=== PATIENT | male | born 1930 | race Caucasian/White ===

== ENCOUNTER 2018-12-24 12:47 | Outpatient (CLI) | payer MEDICARE, BC ==
--- NOTE | 2018-12-24 15:55 | CT ---
CTA CHEST WITH CONTRAST: INDICATIONS: Atrial fibrillation. Exam was performed to evaluate prior to left atrial appendage ligation procedur e. COMPARISON: CT chest from 04/25/2017. TECHNIQUE: Multiple axial tomograms obtained through the chest with IV enhancement. Angio protocol was followed with multiplanar reconstruction and 3D post processing. FINDINGS: The pulmonary arteries are well opacified. There is no evidence of pulmonary embolus. The pulmonary veins are well opacified and appear unremarkable. The left atrium is unremarkable. The abdominal aorta shows mild atherosclerotic change. Mild aneurysmal dilatation of the ascending a megan is noted with diameter measured at up to 5 cm. Atherosclerotic changes in the aortic arch. The descending thoracic aorta is mildly ectatic with peripheral calcification. Diameter is measured at 3 .5 cm. The lungs show mild peripheral interstitial thickening. No infiltrate or effusion. Mild stranding i n the lung bases appears chronic. No evidence of pulmonary mass or nodule. No evidence of mediastin al adenopathy. Images through the upper abdomen are unremarkable. IMPRESSION: 1. 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 2. 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 3. Left atrium and pulmonary veins appear unremarkable. POS: [facility]
[2018-12-24] MEDS ORDERED: ISOVUE-370 76%-LOCM 1 ML ONE (16:30)
== END 2018-12-24 12:48 | disposition home or self-care (01) ==
LOC: BICCT 12:47
PROVIDERS: ATTEND Internal Medicine Cardiovascular Disease
DX: I48.91 Unspecified atrial fibrillation (principal); I71.2 Thoracic aortic aneurysm, without rupture; I70.0 Atherosclerosis of aorta
CPT/HCPCS: 71275; Q9966

== ENCOUNTER 2019-03-06 05:57 | Observation (INO) | payer MEDICARE, BC ==
[2019-03-06] MEDS ORDERED: Fentanyl 100 MCG/2 ML VIAL ONE ×2 (07:09→11:26)
[2019-03-06] MEDS ORDERED: Propofol 500 MG/50 ML VIAL ONE (07:09)
[2019-03-06] MEDS ORDERED: Ketamine 50 MG/ML (10ML VIAL) ONE (07:09)
[2019-03-06] MEDS ORDERED: Midazolam HCl 2 mg/2 ml Vial ONE (07:09)
[2019-03-06] MEDS ORDERED: Phenylephrine HCL 10 MG/ML VIAL ONE (09:34)
[2019-03-06] MEDS ORDERED: Promethazine HCl 25 MG/ML VIAL SLOW IVP PRN (10:39)
[2019-03-06] MEDS ORDERED: Promethazine HCl 25 MG/ML VIAL IM PRN (10:39)
[2019-03-06] MEDS ORDERED: Ondansetron HCl/PF 4 MG/2 ML Vial IVP PRN (10:39)
[2019-03-06] MEDS ORDERED: Iopamidol 370 76% 50 ML VIAL FS ONE (11:42)
[2019-03-06] MEDS ORDERED: diphenhydrAMINE 25 MG CAP PO PRN (14:05)
[2019-03-06 14:16] VITALS: BMI 31.8
[2019-03-06] MEDS ORDERED: PROPOFOL 200 MG/20 ML VIAL ONE (15:14)
[2019-03-06] MEDS ORDERED: PHENYLEPHRINE-NS 100 MCG/ML 10 ML SYRINGE ONE (15:14)
[2019-03-06] MEDS: Torsemide 20 MG TAB PO SCH (15:19)
[2019-03-06] MEDS: ceFAZolin 1 GM/D5W 1 GM in Premix Bag 1 BAG IVPB SCH (16:32)
--- NOTE | 2019-03-06 17:51 | EKG ---
Test Reason : POST LEAD REVISION Blood Pressure : / mmHG Vent. Rate : 083 BPM Atrial Rate : 052 BPM P-R Int : 000 ms QRS Dur : 138 ms QT Int : 456 ms P-R-T Axes : 000 070 244 degrees QTc Int : 535 ms Demand pacemaker; interpretation is based on intrinsic rhythm Wide QRS rhythm with Premature ventricular complexes or Fusion complexes Left bundle branch block Abnormal ECG When compared with ECG of 25-APR-2017 21:26, Wide QRS rhythm has replaced Electronic ventricular pacemaker Confirmed by DR. Antonio ARGUELLO ([id number]) on 03/06/2019 5:51:10 PM Referred By: [facility] Confirmed By:DR. Antonio ARGUELLO
[2019-03-07] MEDS: ceFAZolin 1 GM/D5W 1 GM in Premix Bag 1 BAG IVPB SCH (01:25)
[2019-03-07] MEDS: Cephalexin 250 MG CAP PO SCH ×3 (06:23→21:36)
--- NOTE | 2019-03-07 08:01 | RAD ---
EXAM: Chest PA and lateral: HISTORY: Post cardiac device placement COMPARISON: 01/29/2018 FINDINGS: Mediastinal postop changes. No pneumothorax. Heart size:Within normal limits. Lungs:Clear of acute process. No confluent pneumonia, overt edema, pleural effusion, or other acute process. IMPRESSION: No significant acute intrathoracic disease.
[2019-03-07] MEDS: Losartan 25 MG TAB PO SCH (09:43)
[2019-03-07] MEDS: Aspirin 81 mg Enteric Coated Tablet PO SCH (09:43)
[2019-03-07] MEDS: Allopurinol 300 MG TAB PO SCH (09:43)
[2019-03-07] MEDS: Torsemide 20 MG TAB PO SCH ×2 (09:44→14:36)
[2019-03-07] MEDS: Finasteride 5 MG TAB PO SCH (09:44)
[2019-03-07] MEDS: Senokot 8.6 MG TAB PO SCH (09:44)
[2019-03-07] MEDS: Spironolactone 25 MG TAB PO SCH (09:44)
[2019-03-07 13:21] LABS: Platelet Count 155 thou/uL (130-400)
--- NOTE | 2019-03-07 16:08 | PDOC.CTH ---
Cardiology Progress Note - Subjective EP PROGRESS NOTE: 03/07/19 Patient seen and evaluated. No new cardiac concerns or complaints today. Minimal tenderness at ICD implant/lead revision site. Denies heart racing, palpitations, chest pain/pressure, dizziness, or passing out. No stroke like symptoms. No fevers, chills, malaise. - Objective Vital Signs Temp Pulse Resp BP Pulse Ox 03/07/19 15:35 97.7 F 83 16 110/59 L 98 03/07/19 11:34 97.6 F 89 16 109/54 L 93 L 03/07/19 07:25 97.9 F 85 20 108/66 95 Weight 197 lb 11.2 oz 03/06/19 03/07/19 03/08/19 06:59 06:59 06:59 Intake Total 1010 Output Total 1375 Balance -365 - Physical Examination General/Neuro: alert & oriented x3, NAD Neck: carotid US brisk, no JVD present Lungs: CTA, unlabored respirations Heart: PMI normal Abdomen: NT/ND, soft Other PE findings: PPM site stable - Telemetry Telemetry Rhythm: AF, PATIENT LIAISON - Labs Result Diagrams: 03/07/19 13:10 03/07/19 13:10 - Assessment/Plan 1. Atrial fibrillation, paroxysmal - now in SR 2. Biventricular pacemaker -s/p LV lead revision on 03/06 - LV vector adjusted today which helped quiet PVC burden. -CXR stable this AM, no pneumothorax -Device function stable this AM - Cephalexin post implant x 7days. 3. CHB 4. NSVT 5. PVC -high burden. Bigeminy overnight. Has quieted some with lead adjustment this AM but will start amidoarone for suppression. Continue to monitor overnight. Will re-evaluated, check EKG in AM.
[2019-03-07] MEDS ORDERED: Amiodarone 200 MG TAB PO SCH (18:00)
[2019-03-07] MEDS: Amiodarone 200 MG TAB PO SCH (21:36)
[2019-03-07] MEDS: Apixaban 5 MG TAB PO SCH (21:36)
[2019-03-08] MEDS: Cephalexin 250 MG CAP PO SCH ×2 (05:46→13:33)
[2019-03-08] MEDS: Losartan 25 MG TAB PO SCH (08:11)
[2019-03-08] MEDS: Apixaban 5 MG TAB PO SCH (08:12)
[2019-03-08] MEDS: Senokot 8.6 MG TAB PO SCH (08:12)
[2019-03-08] MEDS: Spironolactone 25 MG TAB PO SCH (08:12)
[2019-03-08] MEDS: Torsemide 20 MG TAB PO SCH ×2 (08:12→13:35)
[2019-03-08] MEDS: Amiodarone 200 MG TAB PO SCH ×2 (08:13→15:25)
[2019-03-08] MEDS: Allopurinol 300 MG TAB PO SCH (08:13)
[2019-03-08] MEDS: Aspirin 81 mg Enteric Coated Tablet PO SCH (08:13)
[2019-03-08] MEDS: Finasteride 5 MG TAB PO SCH (08:13)
[2019-03-08 11:44] VITALS: TEMP 97.5
--- NOTE | 2019-03-08 12:41 | PDOC.CTH ---
Cardiology Progress Note - Subjective EP PROGRESS NOTE: 03/08/19 Patient seen and evaluated. No new cardiac concerns or complaints today. Minimal tenderness at ICD implant/lead revision site. Denies heart racing, palpitations, chest pain/pressure, dizziness, or passing out. No stroke like symptoms. No fevers, chills, malaise. - Objective Vital Signs Temp Pulse Resp BP Pulse Ox 03/08/19 11:43 97.5 F L 81 17 92/58 L 98 03/08/19 07:51 97.7 F 87 17 108/65 96 03/08/19 03:03 97.7 F 77 12 126/68 97 Weight 199 lb 4.8 oz 03/07/19 03/08/19 03/09/19 06:59 06:59 06:59 Intake Total 1010 1200 Output Total 1375 200 Balance -365 1000 - Physical Examination General/Neuro: alert & oriented x3, NAD Neck: carotid US brisk, no JVD present Lungs: CTA, unlabored respirations Heart: PMI normal Abdomen: NT/ND, soft - Telemetry Telemetry Rhythm: AF, CHIEF OF SERVICE pacing - Labs Result Diagrams: 03/07/19 13:10 03/07/19 13:10 - Assessment/Plan 1. Atrial fibrillation, paroxysmal vs persistent -Eliquis for OAC resumed. 2. Biventricular pacemaker - s/p lead revision on 03/06 - LV vector adjusted today which helped quiet PVC burden. - CXR stable 03/07, no pneumothorax - Device function stable 03/07 - Cephalexin post implant x 7days. 3. CHB 4. NSVT 5. PVC -high burden. Bi/Trigeminy overnight that essentially stopped this AM after starting Amiodarone 03/07 PM rhythm stabilized. Remains in AFib which may need CV as OP at a later date. OAC resumed last night with no signs of bleeding. Mild hypotension, possibly related to improved cardiac function s/p lead revision. Will reduce diuretics. Device and wound check in 2 weeks.
[2019-03-08 13:36] VITALS: BP 94/60
--- NOTE | 2019-03-09 05:41 | DIS ---
DATE OF ADMISSION: 03/06/2019 DATE OF DISCHARGE: 03/08/2019 REASON FOR ADMISSION: LV lead revision. HISTORY OF PRESENT ILLNESS: Mr. Min is a pleasant elderly gentleman, known to our practice for history of atrial arrhythmias as well as inclusion of a biventricular [employer] device. His LV lead had unfortunately dislodged and required lead revision. He was admitted to [facility] on 03/06/2019, for an elective outpatient lead revision. Following successfully revised LV lead, he was kept overnight for observation. During this time, he was also found to have very high burden premature ventricular complexes and bigeminal and trigeminal rhythm. He also had gone back into atrial fibrillation. He is largely asymptomatic with his atrial arrhythmias, but there is concern with the burden of this ventricular ectopy. He was started on low-dose amiodarone which has successfully quieted his ventricular ectopy and he is at this point ready for discharge. SUBJECTIVE: Mr. Min is feeling well today. He denies any heart racing, palpitations, chest pain, pressure, syncope, near syncope, bleeding at his recent pacemaker revision site, blood in his urine, blood in stool. He is eating. He is ambulating as he normally does at home. His is at bedside. He does not have any cardiac concerns or complaints today and is eager to go home. REVIEW OF SYSTEMS: An 8-point review of systems was negative, except that listed above in the subjective portion. OBJECTIVE: VITAL SIGNS: 97.5 degrees Fahrenheit, pulse 81, blood pressure 108/65, respirations 17, and oxygen is 96% on room air. GENERAL: Patient is alert and oriented. Speech is clear. Affect is appropriate. He is hard of hearing. NECK: Supple without jugular venous distention. LUNGS: Clear to auscultation bilaterally. HEART: Rate is regular. Device is seated at the left infraclavicular fossa. There is recent incision with intact Dermabond in place. There is minimal bruising and swelling. No signs of hematoma or acute bleeding issues after resuming anticoagulation last night. ABDOMEN: Soft and nontender. Hepatojugular reflux is negative. EXTREMITIES: Warm and dry to touch without clubbing, cyanosis, or edema. NEUROLOGIC: Grossly intact and nonfocal. Gait is stable with assistance. DATABASE: EKG in telemetry today shows underlying atrial fibrillation with VOCATIONAL COUNSELOR pacing. There is very drastic reduction in ventricular ectopy seen in the network account manager hours today since starting the amiodarone. DISCHARGE MEDICATIONS: 1. Resuming home medications of losartan 100 mg p.o. daily. 2. Proscar 5 mg daily. 3. Allopurinol 300 mg daily. 4. Spironolactone 12.5 mg q.a.m. 5. Senokot as needed. New prescriptions: 1. Cephalexin 500 mg p.o. q.8 hours x7 days postimplant. 2. Amiodarone 200 mg p.o. daily. 3. Home medications with dose adjustment Eliquis has been reduced to 2.5 mg p.o. b.i.d. given advanced age and kidney function. 4. Torsemide 40 mg p.o. b.i.d. will now be given p.r.n. DISCHARGE RECOMMENDATIONS AND INSTRUCTIONS: No lifting of his elbow over shoulder for over 4 weeks. No driving for 2 weeks. Continue oral anticoagulation. Continue postimplant antibiotics. No lifting more than 10 pounds for 3 weeks. Contact [facility] with any postprocedural device related or arrhythmia related questions. The patient has had some hypotension this morning, which I suspect is related to the increased cardiac function with a properly placed LV lead and left fluid retention. For that reason, we have adjusted his diuretic therapy to prevent any further hypotensive episodes. He has been asymptomatic and blood pressure has barely dipped below 100 systolically. CONDITION AT DISCHARGE: Stable. Job ID: [id number]
--- NOTE | 2019-03-09 13:44 | EKG ---
Test Reason : Blood Pressure : / mmHG Vent. Rate : 090 BPM Atrial Rate : 052 BPM P-R Int : 000 ms QRS Dur : 166 ms QT Int : 456 ms P-R-T Axes : 000 083 260 degrees QTc Int : 557 ms Demand pacemaker; interpretation is based on intrinsic rhythm Atrial fibrillation with premature ventricular or aberrantly conducted complexes Right bundle branch block Marked T-wave abnormality, consider inferolateral ischemia occasional ventricular paced beat Abnormal ECG When compared with ECG of 06-MAR-2019 11:32, Atrial fibrillation has replaced Wide QRS rhythm Confirmed by DR. Antonio ARGUELLO ([id number]) on 03/09/2019 1:44:10 PM Referred By: [facility] Confirmed By:DR. Antonio ARGUELLO
--- NOTE | 2019-03-09 13:52 | EKG ---
Test Reason : Blood Pressure : / mmHG Vent. Rate : 082 BPM Atrial Rate : 041 BPM P-R Int : 000 ms QRS Dur : 138 ms QT Int : 466 ms P-R-T Axes : 000 068 241 degrees QTc Int : 544 ms Demand pacemaker; interpretation is based on intrinsic rhythm Probable biventricular paced rhythm with premature ventricular contractions Abnormal ECG Confirmed by DR. Antonio ARGUELLO ([id number]) on 03/09/2019 1:52:00 PM Referred By: [facility] Confirmed By:DR. Antonio ARGUELLO
== END 2019-03-08 16:00 | disposition home or self-care (01) ==
LOC: CCL 05:57 → 2SW 11:46
PROVIDERS: ADMIT Internal Medicine Cardiovascular Disease; ATTEND Internal Medicine Cardiovascular Disease
PROC: 02WA3MZ Revision of Cardiac Lead in Heart, Percutaneous Approach (ICD-10-PCS; principal; 2019-03-06)
DX: T82.120A Displacement of cardiac electrode, initial encounter (principal); I48.0 Paroxysmal atrial fibrillation; I25.5 Ischemic cardiomyopathy; E78.00 Pure hypercholesterolemia, unspecified; I44.2 Atrioventricular block, complete; I13.0 Hypertensive heart and chronic kidney disease with heart failure and stage 1 through stage 4 chronic kidney disease, or unspecified chronic kidney disease; N18.9 Chronic kidney disease, unspecified; I50.9 Heart failure, unspecified; Z79.01 Long term (current) use of anticoagulants; Z79.82 Long term (current) use of aspirin; Z79.899 Other long term (current) drug therapy; Z91.048 Other nonmedicinal substance allergy status; Z95.1 Presence of aortocoronary bypass graft; Z95.2 Presence of prosthetic heart valve
CPT/HCPCS: 33216; 33222; 36005; 71045; 75820; 82565; 85014; 85018; 85049; 93005 ×3; 96365; 96366; C1769; G0378; 36415; 93010; J0690; J2250; J2370; J2704; J3010; J3490; Q0163; Q9967